=== PATIENT | female | born 1950 | race Caucasian/White ===

== ENCOUNTER 2023-11-30 09:58 | Day surgery (SDC) | payer MEDICARE ==
[2023-11-25 16:54] VITALS: BMI 22.8
[2023-11-30] MEDS: LACTATED RINGERS 1,000 ML IV SCH (11:45)
[2023-11-30 11:54] VITALS: RESP 16; TEMP 98.2
[2023-11-30 11:56] LABS: Glucose,Whole Blood 82 mg/dL (70-110)
[2023-11-30] MEDS ORDERED: PROPOFOL 10 MG/ML 20 ML VIAL IV ONE (12:00)
[2023-11-30] MEDS ORDERED: LIDOCAINE 1% INJ 10MG/ML (20 ML MDV) ONE (12:00)
--- NOTE | 2023-11-30 12:29 | P.PCN ---
Date of Procedure: 11/30/23 Procedure(s) Performed: BRIEF HISTORY: Patient is a 73-year-old pleasant female scheduled for an elective colonoscopy as a part of screening for colon cancer. PROCEDURE PERFORMED: Colonoscopy. PREOPERATIVE DIAGNOSIS: Screening for colon cancer. IV sedation per Anesthesia. PROCEDURE: After informed consent was obtained, the patient, was brought into the endoscopy unit. IV sedation was administered by Anesthesia under continuous monitoring. Digital rectal examination was normal. Initially the Olympus CF-160 flexible video colonoscope was then inserted in the rectum, gradually advanced into the cecum without any difficulty. Careful examination was performed as the scope was gradually being withdrawn. Ileocecal valve and the appendiceal orifice were visualized and appeared normal. Prep was excellent. Mucosa of the cecum, ascending colon, transverse colon, descending colon, sigmoid colon, and rectum appeared normal. Retroflexion was performed in the rectum and no lesions were seen. The patient tolerated the procedure well. IMPRESSION: Normal-appearing colon from rectum to cecum no evidence of colorectal neoplasia. RECOMMENDATIONS: Findings of this examination were discussed with the patient as well as her family. She was advised to have a repeat screening colonoscopy in 10 years..
[2023-11-30 12:59] VITALS: BP 130/72; PULSE 86
== END 2023-11-30 13:06 | disposition home or self-care (01) ==
LOC: ORWHC2ENDO 09:58
PROVIDERS: ATTEND Internal Medicine Gastroenterology
DX: Z12.11 Encounter for screening for malignant neoplasm of colon (principal); I10 Essential (primary) hypertension; E78.5 Hyperlipidemia, unspecified; M19.90 Unspecified osteoarthritis, unspecified site; G43.909 Migraine, unspecified, not intractable, without status migrainosus; Z79.899 Other long term (current) drug therapy; Z98.42 Cataract extraction status, left eye; Z98.41 Cataract extraction status, right eye; Z96.653 Presence of artificial knee joint, bilateral
CPT/HCPCS: J2001; J2704; G0121